=== PATIENT | female | born 1960 ===

== ENCOUNTER → 2021-01-12 | Outpatient (CLI) | payer BC | END | disposition home or self-care (01) | LOC: LAB 12:50 → LAB SHORT 12:50 | DX: L82.1 Other seborrheic keratosis (principal); C44.91 Basal cell carcinoma of skin, unspecified | CPT/HCPCS: 88305 ==

== ENCOUNTER → 2023-12-02 | Outpatient (CLI) | payer BC | LOC: LAB 11:38 → LAB SHORT 11:38 | DX: D48.5 Neoplasm of uncertain behavior of skin (principal) ==